=== PATIENT | male | born 1965 | race Caucasian/White ===

== ENCOUNTER 2016-07-21 10:30 | Day surgery (SDC) | payer OTHER ==
[2016-07-21] VITALS (10 sets, daily range): BP systolic 129–154; BP diastolic 66–88; PULSE 60–75; RESP 12–21; Ht 172.7 cm; Wt 87.0 kg
[~2016-07-21] VITALS: Ht 172.7 cm; Wt 87.0 kg
[~2016-07-21 10:30] MED LIST: GLYCOPYRROLATE 0.4 MG INJ ONE; NEOSTIGMINE 3 MG/3 ML SYRINGE ONE
[2016-07-21] MEDS ORDERED: CEFAZOLIN 2 GM/50 ML (PMX) 50 ML IVPB ONE (11:30)
[2016-07-21] MEDS ORDERED: SOD CHLORIDE 0.9% 1,000 ML IV ONE (11:30)
--- NOTE | 2016-07-21 11:38 | RADRPT ---
PROCEDURE: XR Chest. CLINICAL INDICATION: Preoperative chest TECHNIQUE: Chest AP portable. COMPARISON: No comparison available. FINDINGS: The mediastinal structures are unremarkable. The heart is normal in size and configuration. The pu lmonary vascularity is normal. The lung zamora are unremarkable. No consolidation is identified. The pleural spaces are unremarkable. The axial skeleton is unremarkable. IMPRESSION: No active intrathoracic disease. RPTAT: [facility] .Naresh Samaniego MD, MD Date Time Electronically viewed and signed by .Naresh Samaniego MD, MD on 07/21/2016 11:38 .B/
[2016-07-21] MEDS ORDERED: FENTAnyl 50 MCG/ML VIAL ONE (13:41)
[2016-07-21] MEDS ORDERED: BUPIVACAINE 0.25% (MPF) 30 ML INJ ONE (14:01)
[2016-07-21] MEDS ORDERED: ROCURONIUM 50 MG INJ ONE (14:14)
[2016-07-21] MEDS ORDERED: PROPOFOL 40 ML ONE (14:14)
[2016-07-21] MEDS ORDERED: LIDOCAINE 2% (SDV) 5 ML INJ ONE (14:14)
[2016-07-21] MEDS ORDERED: SUCCINYLCHOLINE CHLORIDE 100 MG/5 ML SYG IV ONE (14:14)
[2016-07-21] MEDS ORDERED: CEFAZOLIN 1 GM INJ ONE (14:14)
[2016-07-21] MEDS ORDERED: ROPIVACAINE 0.5 % 30 ML VIAL ONE (14:14)
[2016-07-21] MEDS ORDERED: POLYMYXIN/BACITRACIN 1L IRRIG IRR ONE (14:27)
[2016-07-21] MEDS ORDERED: HYDROCODONE/APAP (5/325) TAB PO ONE (14:30)
[2016-07-21] MEDS ORDERED: DIPHENHYDRAMINE 50 MG INJ IV PRN (14:30)
[2016-07-21] MEDS ORDERED: ONDANSETRON 4 MG INJ IV PRN (14:30)
[2016-07-21] MEDS ORDERED: MEPERIDINE 25 MG INJ IV PRN (14:30)
[2016-07-21] MEDS ORDERED: METOCLOPRAMIDE 10 MG INJ IV PRN (14:30)
[2016-07-21] MEDS ORDERED: HYDROmorphONE (0.2 MG/ML) 10ML SYG IV PRN ×3 (14:30)
[2016-07-21] MEDS ORDERED: FENTAnyl 50 MCG/ML VIAL IV PRN ×2 (14:30)
--- NOTE | 2016-07-21 14:32 | OPR ---
Date/Time of Note Date/Time of Note DATE: 07/21/16 TIME: 14:31 Operative Report Procedure Date: Jul 21, 2016 Preoperative Diagnosis RIH Postoperative Diagnosis RIH Operation Performed Right inguinal herniorrhaphy Surgeon: Amandeep VIDES Anesthesia: general Estimated Blood Loss: minimal Pt Condition Post Procedure: stable Disposition: PACU Amandeep VIDES Jul 21, 2016 14:32
--- NOTE | 2016-07-21 14:50 | OPR ---
DATE OF OPERATION: 07/21/2016 INDICATION: This is a 50-year-old male with a right inguinal hernia. He requests surgical repair. Risks, alternatives, benefits, and personnel were discussed with the patient. The patient expresse d his understanding and consents to the operation. PREOPERATIVE DIAGNOSIS: Right inguinal hernia. POSTOPERATIVE DIAGNOSIS: Right inguinal hernia. OPERATION: Open right inguinal hernia repair with large size Ultrapro hernia system mesh. SURGEON: Rubin Bergman MD SPECIMEN: None. COMPLICATIONS: None. ANESTHESIA: General. DESCRIPTION OF PROCEDURE: The patient was taken to the OR and prepped and draped in the usual steri le fashion. Surgical time out was performed. IV antibiotics were given. Right inguinal oblique in cision is made with a 10 blade. Dissection cautery was carried down to the external oblique fascia which was opened with a 15 blade. This incision is extended medial inferiorly and lateral superiorl y with Metzenbaum scissors. Cord structures were identified and encircled with a Huong drain. La rge direct hernia was reduced. This is buttressed at the disk portion of the Ultrapro hernia system mesh with a running 0 Prolene from the pubic tubercle along the shelving edge of the inguinal ligam ent and superiorly to the internal oblique with interrupted 3-0 Vicryl. Onlay mesh was carried out in a similar fashion with a running 0 Prolene from the pubic tubercle along the shelving edge of the inguinal ligament. Straps are created and reapproximated with interrupted 0 Prolene to re-create t he inguinal ring. Onlay mesh was secured to the internal oblique with interrupted 3-0 Vicryl. Exte rnal oblique fascia was closed with running 3-0 Vicryl. Milo's closed with interrupted 3-0 Vicryl . Skin was closed using bhavani. Local anesthesia was injected. Dry dressings were applied. Dictated By: RUBIN PONCE/TAMI Conf#: [id number] DID#: [id number]
--- NOTE | 2016-07-23 09:24 | RADRPT ---
Vent Rate: 64 bpm RR Interval: 0 msec DE Interval: 168 msec QRS Duration: 70 msec QT Interval: 382 msec QTC Interval: 394 msec P-R-T [place]: 59 - 70 - 77 degrees Normal sinus rhythm Normal ECG Electronically Signed By: Pierce Moses [id number]
== END 2016-07-21 16:23 | disposition home or self-care (01) ==
LOC: SDS 10:30
PROVIDERS: ATTEND Surgery
DX: K40.90 Unilateral inguinal hernia, without obstruction or gangrene, not specified as recurrent (principal)
CPT/HCPCS: 49505; 71010; 93005; C1781; J0330; J0690; J1170; J2710; J2795; J3010; Z7512; Z7610